=== PATIENT | male | born 1990 | race Two or more races ===

== ENCOUNTER 2021-11-20 20:41 | Emergency (ER) | payer OTHER ==
[~2021-11-20] VITALS: Ht 177.8 cm; Wt 77.3 kg
[2021-11-20] MEDS ORDERED: SILVER SULFADIAZINE 1 % TOPICAL CREAM 50GM TOP ONE (21:00)
[2021-11-20] MEDS ORDERED: ONDANSETRON HCL 4 MG/2 ML VIAL IV ONE (21:00)
[2021-11-20] MEDS ORDERED: LACTATED RINGER'S 2,000 ML IV ONE (21:00)
[2021-11-20] MEDS ORDERED: HYDROmorphone HCL 2 MG/ML VL/or syr IV ONE (21:00)
[2021-11-20] MEDS ORDERED: LACTATED RINGER'S 3,000 ML IV ONE (21:00)
[2021-11-20] MEDS ORDERED: NEOMYCIN-BACITRACIN-POLYM UNITDOSE PKG TOP OINT TOP ONE ×2 (21:04→21:15)
[2021-11-20] MEDS ORDERED: cefTRIAXone 1GM/50ML D5W 50 ML IV ONE (21:15)
[2021-11-20] MEDS ORDERED: SODIUM CHLORIDE 0.9% 1,000 ML IV ONE ×2 (21:30)
[2021-11-20 22:06] LABS: Basophils # (auto) 0.1 10 ^3/uL (0-0.2); Basophils % (auto) 0.8 % (0.0-2.0); Eosinophils # (auto) 0.3 10 ^3/uL (0-0.8); Eosinophils % (auto) 1.7 % (0.0-7.0); Hemoglobin 12.8 g/dL (13.5-17.5); Lymphocytes % (auto) 11.6 % (10.0-50.0); Mean Corpuscular Hemoglobin 27.7 pg (28.0-32.0); Mean Corpuscular Volume 84.2 fL (80.0-100.0); Monocytes # (auto) 0.9 10 ^3/uL (0-1.3); Monocytes % (auto) 5.5 % (0.0-12.0); Neutrophils # (auto) 13.9 10 ^3/uL (1.6-8.6); Neutrophils % (auto) 80.4 % (37.0-80.0); Red Blood Cells 4.63 10^6/uL (4.5-5.90); Red Cell Distribution Width 14.5 % (11.8-14.3); White Blood Cell 17.3 10^3/uL (4.4-10.8)
[2021-11-20 22:24] LABS: Albumin 3.3 g/dL (3.4-5.0); Potassium 3.6 mmol/L (3.5-5.1)
[2021-11-20 22:26] LABS: INR 1.1 (0.9-1.15); Partial Thromboplastin Time 28.3 sec (24.6-33.4)
[2021-11-20 22:29] LABS: Bilirubin, Total 0.4 mg/dL (0.2-1.0)
[2021-11-20 22:32] VITALS: BP 129/84
== END 2021-11-21 03:32 | disposition short-term general hospital (02) ==
LOC: ER 20:45
DX: T20.24XA Burn of second degree of nose (septum), initial encounter (principal); T20.26XA Burn of second degree of forehead and cheek, initial encounter; T20.212A Burn of second degree of left ear [any part, except ear drum], initial encounter; T20.211A Burn of second degree of right ear [any part, except ear drum], initial encounter; T22.212A Burn of second degree of left forearm, initial encounter; T22.211A Burn of second degree of right forearm, initial encounter; T24.222A Burn of second degree of left knee, initial encounter; T24.221A Burn of second degree of right knee, initial encounter; T21.20XA Burn of second degree of trunk, unspecified site, initial encounter; X08.8XXA Exposure to other specified smoke, fire and flames, initial encounter; Z20.822 Contact with and (suspected) exposure to COVID-19; W40.1XXA Explosion of explosive gases, initial encounter; Y93.89 Activity, other specified; Y92.89 Other specified places as the place of occurrence of the external cause; Y99.8 Other external cause status
CPT/HCPCS: 16020; 36415; 71045; 80053; 85025; 85610; 85730; 87426; 96365; 96375; 99285; J0696; J1170; J2405; J7030

== ENCOUNTER 2021-11-23 09:47 | Emergency (ER) | payer OTHER ==
[~2021-11-23] VITALS: Ht 167.6 cm; Wt 59.0 kg
[2021-11-23] MEDS ORDERED: KETOROLAC TROMETH 60MG/2ML VIAL IM ONE (11:15)
[2021-11-23] MEDS ORDERED: LIDOCAINE 5% TOPICAL PATCH TOP ONE (11:15)
[2021-11-23] MEDS ORDERED: BACITRACIN TOP OINT 1 UD PKG TOP ONE (12:15)
[2021-11-23 12:21] VITALS: BP 137/84
[2021-11-23] MEDS ORDERED: [UNRECOGNIZED DRUG - CODE] EX (12:38)
[2021-11-23] MEDS ORDERED: LIDO5DIS21 TOP (12:38)
[2021-11-23] MEDS ORDERED: HYDR-4902 PO (12:39)
== END 2021-11-23 13:28 | disposition home or self-care (01) ==
LOC: ER 09:47
DX: T20.10XD Burn of first degree of head, face, and neck, unspecified site, subsequent encounter (principal); X58.XXXD Exposure to other specified factors, subsequent encounter
CPT/HCPCS: 99283; J1885